=== PATIENT | female | born 1990 | race Caucasian/White ===

== ENCOUNTER 2018-06-07 10:26 | Emergency (ER) | payer BC, MEDICAID, MEDICARE, OTHER ==
[~2018-06-07] VITALS: Ht 170.2 cm; Wt 63.0 kg
[2018-06-07 10:40] VITALS: BP 118/78
== END 2018-06-07 11:37 | disposition home or self-care (01) ==
LOC: ER 10:27
DX: J02.9 Acute pharyngitis, unspecified (principal)
CPT/HCPCS: 99281

== ENCOUNTER 2019-05-17 08:01 | Day surgery (SDC) | payer MEDICAID, MEDICARE ==
[2019-05-13 15:55] LABS: BASOPHILS % (AUTO) 0.6 % (0-1); EOSINOPHILS # (AUTO) 0.1 X10'3 (0-0.9); EOSINOPHILS % (AUTO) 1.4 % (0-6); LYMPHOCYTES # (AUTO) 2.5 X10'3 (1.1-4.8); LYMPHOCYTES % (AUTO) 33.7 % (21-51); MEAN CORPUSCULAR HEMOGLOBIN 30.6 PG (27.0-31.0); MEAN CORPUSCULAR HGB CONC 34.4 g/dL (33.0-36.5); MEAN PLATELET VOLUME 7.7 FL (7.4-10.4); MONOCYTES # (AUTO) 0.8 X10'3 (0-0.9); MONOCYTES % (AUTO) 10.4 % (2-12); NEUTROPHILS % (AUTO) 53.9 % (42-75); PRE OP HEMATOCRIT 39.7 % (35.0-45.0); PRE OP HEMOGLOBIN 13.7 g/dL (12.0-16.0); PRE OP PLATELET COUNT 252 X10'3 (140-440); RED BLOOD COUNT 4.47 X10'6 (4.20-5.60); RED CELL DISTRIBUTION WIDTH 12.7 % (11.5-14.5)
[2019-05-13 16:04] LABS: HCG SERUM QL NEGATIVE
[~2019-05-17] VITALS: Ht 170.2 cm; Wt 68.8 kg
[2019-05-17] VITALS (8 sets, daily range): BP systolic 120–136; BP diastolic 60–91
[~2019-05-17 08:01] MED LIST: CYCL-1 PO; cefazolin/dext.iso 2gm/100ml 100 ML IV ONE; famotidine 20mg tablet PO ONE; ringers solution, lacted 1,000 ML IV SCH
[2019-05-17] MEDS ORDERED: BUPIVAcaine/PF 2.5 mg/ml (0.25%) 30ml vial ONE (09:29)
[2019-05-17] MEDS ORDERED: midazolam 2 mg/2 ml injection ONE (10:01)
[2019-05-17] MEDS ORDERED: fentaNYL /PF 50mcg/ml 5ml ampule ONE (10:01)
[2019-05-17] MEDS ORDERED: ringers solution, lacted 1,000 ML IV SCH (10:32)
[2019-05-17] MEDS ORDERED: meperidine/PF 25mg/ml syringe IV PRN ×2 (10:35)
[2019-05-17] MEDS ORDERED: morphine 4 MG/ML inj SYRINge IV PRN ×2 (10:35)
[2019-05-17] MEDS ORDERED: proCHLORperazine 10 MG/2 ml inj IV PRN (10:35)
[2019-05-17] MEDS ORDERED: ondansetron/PF 4mg/2ml inj IV PRN (10:35)
[2019-05-17] MEDS ORDERED: dexamethasone sod phosphate 4mg/ml inj. ONE (10:40)
[2019-05-17] MEDS ORDERED: propofol inj 20 ML IV ONE (10:40)
[2019-05-17] MEDS ORDERED: ondansetron/PF 4mg/2ml inj ONE (10:40)
[2019-05-17] MEDS ORDERED: LIDOcaine 2% (20mg/ml) 5ml vial ONE (10:40)
--- NOTE | 2019-05-17 11:07 | NUR ---
Received from OR via , accompanied by Anesthesiologist DR BOOGIE and report given by Anesthesiolgist. AWAKENS TO VOICE. VITALS STABLE. DRESSING DI/ C/O LT THIGH PAIN. WILL MEDICATE.
[2019-05-17] MEDS: meperidine/PF 25mg/ml syringe IV PRN ×3 (11:17→12:00)
[2019-05-17] MEDS ORDERED: acetaminophen w/codeine (30MG) #3 tablet PO PRN ×2 (12:00)
--- NOTE | 2019-05-17 12:17 | NUR ---
AWAKE AND ORIENTED. VITALS STABLE. DRESSING DI. STATES PAIN IMPROVING. HOME WITH A FRIEND AT THIS TIME.
== END 2019-05-17 12:17 | disposition home or self-care (01) ==
LOC: PAS 08:01
PROVIDERS: ATTEND Surgery
DX: R22.42 Localized swelling, mass and lump, left lower limb (principal); D18.01 Hemangioma of skin and subcutaneous tissue; F41.9 Anxiety disorder, unspecified; Z87.891 Personal history of nicotine dependence; Z98.890 Other specified postprocedural states; Z79.899 Other long term (current) drug therapy
CPT/HCPCS: 27337; 36415; 82948; 84703; 85025; J1100; J2001; J2175; J2250; J2405; J2704; J3010; J3490; A4215; A4618; A6446; A6449; A7000; J7120

== ENCOUNTER 2023-07-21 09:40 | Day surgery (SDC) | payer MEDICARE, MEDICAID ==
[2023-07-20 10:53] LABS: BASOPHILS % (AUTO) 0.5 % (0-1); EOSINOPHILS # (AUTO) 0.6 X10'3 (0-0.9); EOSINOPHILS % (AUTO) 5.1 % (0-6); LYMPHOCYTES # (AUTO) 1.9 X10'3 (1.1-4.8); LYMPHOCYTES % (AUTO) 18.1 % (21-51); MEAN CORPUSCULAR HEMOGLOBIN 28.2 PG (27.0-31.0); MEAN CORPUSCULAR HGB CONC 33.6 g/dL (33.0-36.5); MEAN CORPUSCULAR VOLUME 83.9 FL (78-98); MEAN PLATELET VOLUME 7.1 FL (7.4-10.4); MONOCYTES # (AUTO) 0.8 X10'3 (0-0.9); MONOCYTES % (AUTO) 7.8 % (2-12); NEUTROPHILS # (AUTO) 7.4 X10'3 (1.8-7.7); NEUTROPHILS % (AUTO) 68.5 % (42-75); PRE OP HEMATOCRIT 40.8 % (35.0-45.0); PRE OP HEMOGLOBIN 13.7 g/dL (12.0-16.0); PRE OP PLATELET COUNT 404 X10'3 (140-440); PRE OP WHITE BLOOD COUNT 10.8 10'3 (4.8-10.8); RED BLOOD COUNT 4.87 X10'6 (4.20-5.60); RED CELL DISTRIBUTION WIDTH 18.3 % (11.5-14.5)
[2023-07-20 11:35] LABS: HCG SERUM QL NEGATIVE
[2023-07-20 11:53] LABS: ALBUMIN 3.8 G/DL (3.4-5.0); ALBUMIN/GLOBULIN RATIO 0.9 (1.1-1.5); ALKALINE PHOSPHATASE 150 IU/L (46-116); BLOOD UREA NITROGEN 13 MG/DL (7-18); BUN/CREATININE RATIO 16.3 (10.0-20.0); CALCIUM 8.8 MG/DL (8.5-10.1); CHLORIDE 106 MMOL/L (99-107); PRE OP ALT 42 U/L (30-65); PRE OP ANION GAP 10 (8-16); PRE OP AST 21 U/L (10-37); PRE OP BILIRUB, TOTAL 0.4 MG/DL (0.0-1.0); PRE OP GLUCOSE 69 MG/DL (70-104); PRE OP POTASSIUM 3.9 MMOL/L (3.4-5.1); PRE OP SODIUM 142 MMOL/L (135-145); TOTAL CARBON DIOXIDE 26.4 MMOL/L (24-32); eGFR 84 ML/MIN
[~2023-07-21] VITALS: Ht 170.2 cm; Wt 78.1 kg
[2023-07-21] VITALS (7 sets, daily range): BP systolic 117–162; BP diastolic 68–92; PULSE 72–90; RESP 16–30; TEMP 98.2; O2SAT 96–100
[2023-07-21] MEDS: cefazolin 2gm/D5W 100mL 100 ML IV ONE (05:30)
[~2023-07-21 09:40] MED LIST changes: +ALBU8HFA PO; +HYDR-3686 PO; +IBUP-1985 PO; +SERT-432 PO; +albuterol 2.5 MG/3 ML nebule NEB ONE; -cefazolin/dext.iso 2gm/100ml 100 ML IV ONE; -famotidine 20mg tablet PO ONE; -ringers solution, lacted 1,000 ML IV SCH; +tranexamic acid inj. 1,000 MG in normal saline IV soln 100ML IV ONE
[2023-07-21] MEDS: famotidine 20mg tablet PO ONE (10:08)
[2023-07-21] MEDS: ringers solution, lacted 1,000 ML IV SCH ×2 (10:08→10:55)
[2023-07-21] MEDS ORDERED: meperidine/PF 25mg/ml syringe IV PRN ×3 (10:55)
[2023-07-21] MEDS ORDERED: morphine 4 MG/ML inj SYRINge IV PRN (10:55)
[2023-07-21] MEDS ORDERED: ondansetron/PF 4mg/2ml inj IV PRN (10:55)
[2023-07-21] MEDS ORDERED: proCHLORperazine 10 MG/2 ml inj IV PRN (10:55)
[2023-07-21] MEDS ORDERED: fentaNYL/PF 50MCG/1 ML 2ML syringe ONE ×2 (10:56→10:58)
[2023-07-21] MEDS ORDERED: midazolam 1 mg/ML 2ml injection ONE ×2 (10:56→10:58)
[2023-07-21] MEDS ORDERED: propofol inj 20 ML IV ONE (10:57)
[2023-07-21] MEDS ORDERED: sevoflurane 250ml liquid IH ONE (11:01)
[2023-07-21] MEDS ORDERED: LIDOcaine 1% (10mg/ml)w/preservative inj. 20ml MDV ONE ×2 (11:07→11:14)
[2023-07-21] MEDS ORDERED: BUPIVAcaine/PF 2.5 mg/ml (0.25%) 30ml vial ONE (11:07)
[2023-07-21] MEDS ORDERED: LIDOcaine 1% w/EPI 1:100,000 inj. MDV 50 ML VIAL ONE (11:11)
[2023-07-21] MEDS: BUPIVAcaine/PF 2.5 mg/ml (0.25%) 30ml vial IJ ONE (12:05)
[2023-07-21] MEDS: LIDOcaine 1% 30ml preserv. free vial IJ ONE (12:06)
[2023-07-21] MEDS ORDERED: ondansetron/PF 4mg/2ml inj ONE (12:34)
[2023-07-21] MEDS ORDERED: dexamethasone sod phosphate 4mg/ml inj. ONE (12:35)
[2023-07-21] MEDS: morphine 2 MG/ML inj. syringe IV PRN (13:09)
[2023-07-21] MEDS: oxyCODONE/APAP 5-325mg tablet PO PRN (13:29)
== END 2023-07-21 13:50 | disposition home or self-care (01) ==
LOC: PAS 09:40
PROVIDERS: ATTEND Surgery
DX: D18.01 Hemangioma of skin and subcutaneous tissue (principal); F41.9 Anxiety disorder, unspecified; F32.A Depression, unspecified; G89.29 Other chronic pain; F17.210 Nicotine dependence, cigarettes, uncomplicated; Z98.890 Other specified postprocedural states; Z79.899 Other long term (current) drug therapy; Z80.1 Family history of malignant neoplasm of trachea, bronchus and lung
CPT/HCPCS: 27328; 27339; 36415; 80053; 82948; 84703; 85025; J0690; J1100; J2250; J2270; J2405; J2704; J3010; J3490; J7030; J7120; Z7506; Z7508; Z7512; A4215; A4618; A6449; A7000